=== PATIENT | female | born 1940 | race Caucasian/White ===

== ENCOUNTER 2017-04-07 09:39 | Inpatient (IN) | payer OTHER ==
[2017-04-07] MEDS ORDERED: SODIUM CHLORIDE 1,000 ML IV STA (10:28)
[2017-04-07] MEDS ORDERED: ONDANSETRON 4 MG/2 ML VIAL IVPB ONE (10:28)
[2017-04-07] MEDS ORDERED: FAMOTIDINE 20 MG/50 ML IVPB 50 ML IVPB ONE ×2 (10:28→11:31)
[2017-04-07] MEDS ORDERED: ACETAMINOPHEN 325 MG TABLET (FP) PO ONE (10:28)
[2017-04-07 11:11] LABS: BASOPHIL 0.9 % (0-2.0); EOSINOPHIL 1.5 % (0-4.5); MCH 29.9 pg (25.7-33.7); MCHC 35.4 g/dl (32.0-36.0); MEAN CELL VOLUME 84.7 fl (80-96); NEUTROPHILS 67.9 % (42.8-82.8); PLATELET COUNT 248 K/MM3 (134-434); RDW 12.8 % (11.6-15.6); WHITE BLOOD COUNT 5.4 K/mm3 (4.0-10.0)
[2017-04-07 11:21] LABS: ANION GAP 12 (8-16); CALCIUM 9.5 mg/dL (8.5-10.1); CO2 30 mmol/L (21-32); GLUCOSE,RANDOM 114 mg/dL (74-106); MAGNESIUM 2.3 mg/dL (1.8-2.4)
[2017-04-07 11:24] LABS: BILIRUBIN,TOTAL 0.8 mg/dL (0.2-1.0); CREATININE 0.7 mg/dL (0.55-1.02); SGOT/AST 33 U/L (15-37); SGPT/ALT 23 U/L (12-78); TOT PROT 7.2 g/dl (6.4-8.2)
[2017-04-07 11:27] LABS: ALK PHOS 74 U/L (45-117); CPK 241 IU/L (26-192); TROPONIN I 0.02 ng/ml (0.00-0.05)
[2017-04-07] MEDS ORDERED: ONDANSETRON 4 MG/2 ML VIAL ONE (11:31)
[2017-04-07] MEDS ORDERED: ACETAMINOPHEN 325 MG TABLET (FP) ONE (11:31)
[2017-04-07] MEDS ORDERED: POTASSIUM CHLORIDE TABS 20 MEQ TABLET.ER (FP) PO ONE ×3 (11:41→21:50)
--- NOTE | 2017-04-07 11:41 | PDOC ---
History of Present Illness - General History Source: Patient Exam Limitations: No Limitations - History of Present Illness Initial Comments: 04/07/17 13:34 The patient is a 76 year old female with past medical history of hypertension who presents with three days of, nausea, vomiting, lightheadedness and abdominal pain. The patient locates the pain to her epigastrium and states that she is unable to retain any food or drink, having a decreased appetite and vomiting up all that she has eaten. She reports also being constipated for the past few days as well. The patient states she was being treated for a kidney infection in which she just finished a course of ciprofloxacin. Since then she denies any urinary symptoms. She denies any fever, chills, cough, shortness of breath, or chest pain. The patient denies any recent travel or sick contacts. PCP: Alexander Velazquez <Meryl Richmond - Last Filed: 04/07/17 13:34> - General History Source: Patient Exam Limitations: No Limitations <Gideon Ko - Last Filed: 04/07/17 14:56> - General Chief Complaint: Pain Stated Complaint: ABD PAIN, HEAD PAIN Time Seen by Provider: 04/07/17 10:17 Past History <Meryl Richmond - Last Filed: 04/07/17 13:34> - Past Medical History GI Disorders: Yes (ACID REFLUX) HTN: Yes - Surgical History Abdominal Surgery: Yes Cholecystectomy: Yes - Psycho/Social/Smoking Cessation Hx Suicidal Ideation: No Smoking History: Never smoked Hx Alcohol Use: No Drug/Substance Use Hx: No Substance Use Type: None <Gideon Ko - Last Filed: 04/07/17 14:56> - Past Medical History Allergies/Adverse Reactions: Allergies Allergy/AdvReac Type Severity Reaction Status Date / Time No Known Allergies Allergy Verified 04/07/17 09:47 Home Medications: Ambulatory Orders Atenolol/Chlorthalidone [Atenolol-Chlorthalidone 50-25] 1 each PO DAILY Review of Systems - Review of Systems Able to Perform ROS?: Yes Comments:: 04/07/17 13:35 GENERAL/CONSTITUTIONAL: No fever or chills. No weakness. HEAD, EYES, EARS, NOSE AND THROAT: No change in vision. No ear pain or discharge. No sore throat. CARDIOVASCULAR: No chest pain or shortness of breath. RESPIRATORY: No cough, wheezing, or hemoptysis. GASTROINTESTINAL: Present: nausea, vomiting, abdominal pain No diarrhea or constipation. GENITOURINARY: No dysuria, frequency, or change in urination. MUSCULOSKELETAL: No joint or muscle swelling or pain. No neck or back pain. SKIN: No rash NEUROLOGIC: Present: lightheadedness No headache, vertigo, loss of consciousness, or change in strength/sensation. ENDOCRINE: No increased thirst. No abnormal weight change. HEMATOLOGIC/LYMPHATIC: No anemia, easy bleeding, or history of blood clots. ALLERGIC/IMMUNOLOGIC: No hives or skin allergy. All Other Systems: Reviewed and Negative <Meryl Richmond - Last Filed: 04/07/17 13:34> *Physical Exam - Vital Signs Last Vital Signs Temp Pulse Resp BP Pulse Ox 97.5 F L 69 20 128/66 98 04/07/17 09:44 04/07/17 09:44 04/07/17 09:44 04/07/17 09:44 04/07/17 09:44 - Physical Exam Comments: 04/07/17 13:36 GENERAL: Awake, alert, and fully oriented, in no acute distress HEAD: No signs of trauma EYES: PERRLA, EOMI, sclera anicteric, conjunctiva clear ENT: Auricles normal inspection, hearing grossly normal, nares patent, oropharynx clear without exudates. Moist mucosa NECK: Normal ROM, supple, no lymphadenopathy, JVD, or masses LUNGS: Breath sounds equal, clear to auscultation bilaterally. No wheezes, and no crackles HEART: Regular rate and rhythm, normal S1 and S2, no murmurs, rubs or gallops ABDOMEN: Soft, nontender, normoactive bowel sounds. No guarding, no rebound. No masses EXTREMITIES: Normal range of motion, no edema. No clubbing or cyanosis. No cords, erythema, or tenderness NEUROLOGICAL: Cranial nerves II through XII grossly intact. Normal speech, normal gait SKIN: Warm, Dry, normal turgor, no rashes or lesions noted. <Meryl Richmond - Last Filed: 04/07/17 13:34> - Vital Signs Last Vital Signs Temp Pulse Resp BP Pulse Ox 97.5 F L 69 20 128/66 98 04/07/17 09:44 04/07/17 09:44 04/07/17 09:44 04/07/17 09:44 04/07/17 09:44 <Gideon Ko - Last Filed: 04/07/17 14:56> Heart Score/ECG Review #1 ECG reviewed & interpreted by me at: 15:00 04/07/17 14:55 NSR 55, T wave flat III, no std/jason, QTC 474 msec <Gideon Ko - Last Filed: 04/07/17 14:56> ED Treatment Course - LABORATORY CBC & Chemistry Diagram: 04/07/17 10:30 04/07/17 10:30 - ADDITIONAL ORDERS Additional order review: Laboratory Results 04/07/17 04/07/17 11:30 10:30 Sodium 124 L* Potassium 2.9 L* Chloride 82 L Carbon Dioxide 30 Anion Gap 12 BUN 9 Creatinine 0.7 Creat Clearance w eGFR > 60 Random Glucose 114 H Calcium 9.5 Magnesium 2.3 Total Bilirubin 0.8 AST 33 ALT 23 Alkaline Phosphatase 74 Creatine Kinase 241 H Creatine Kinase Index 1.6 CK-MB (CK-2) 4.089 H Troponin I 0.02 Total Protein 7.2 Albumin 4.0 Lipase 133 Urine Color Ltyellow Urine Appearance Clear Urine pH 7.0 Urine Protein Negative Urine Glucose (UA) Negative Urine Ketones Trace H Urine Blood 1+ H Urine Nitrite Negative Urine Bilirubin Negative Urine Urobilinogen Negative Ur Leukocyte Esterase 2+ H Urine RBC 2 Urine WBC 12 Ur Epithelial Cells Rare 04/07/17 10:30 RBC 4.49 MCV 84.7 MCHC 35.4 RDW 12.8 MPV 8.0 Neutrophils % 67.9 Lymphocytes % 17.5 Monocytes % 12.2 H Eosinophils % 1.5 Basophils % 0.9 - RADIOLOGY Radiograph Interpretation: 04/07/17 13:[address] reported by Dr[address] Phillips reports some retained stools, no fecal impaction or free air. - Medications Given in the ED: ED Medications Discontinued Medications Generic Name Dose Route Start Last Admin Trade Name Freq PRN Reason Stop Dose Admin Acetaminophen 650 mg 04/07/17 10:28 04/07/17 11:29 Tylenol - PO 04/07/17 10:29 650 mg ONCE ONE Administration Famotidine/Sodium Chloride 50 mls @ 100 mls/hr 04/07/17 10:28 04/07/17 11:29 Pepcid 20 Mg Premixed Ivpb - IVPB 04/07/17 10:57 100 mls/hr ONCE ONE Administration Sodium Chloride 1,000 mls @ 1,000 mls/hr 04/07/17 10:28 04/07/17 11:29 Normal Saline - IV 04/07/17 11:27 1,000 mls/hr ASDIR STA Administration Pantoprazole Sodium 40 mg/ 100 mls @ 200 mls/hr 04/07/17 12:56 04/07/17 12:58 Sodium Chloride IVPB 04/07/17 13:25 200 mls/hr ONCE ONE Administration Ondansetron HCl 4 mg 04/07/17 10:28 04/07/17 11:30 Zofran Injection IVPB 04/07/17 10:29 4 mg ONCE ONE Administration Potassium Chloride 60 meq 04/07/17 11:41 04/07/17 12:35 K-Dur - PO 04/07/17 11:42 60 meq ONCE ONE Administration <Meryl Richmond - Last Filed: 04/07/17 13:34> - LABORATORY CBC & Chemistry Diagram: 04/07/17 10:30 04/07/17 13:00 - RADIOLOGY Radiology Studies Ordered: Category Date Time Status ABDOMEN FLAT & UPRIGHT [RAD] Stat Radiology 04/07/17 10:33 Ordered <Gideon Ko - Last Filed: 04/07/17 14:56> Medical Decision Making - Medical Decision Making 04/07/17 11:10 A portion of this note was documented by scribe services under my direction. I have reviewed the details of the note, within reason, and agree with the documentation with the following case summary and management plan written by me. Patient treated in the ED. Nursing notes are reviewed and incorporated into the medical decision-making. Vital signs reviewed. Peripheral IV access obtained by the nurse, laboratory studies are drawn and sent, reviewed and interpreted by myself. Vital Signs Temp Pulse Resp BP Pulse Ox 97.5 F L 69 20 128/66 98 04/07/17 09:44 04/07/17 09:44 04/07/17 09:44 04/07/17 09:44 04/07/17 09:44 76 year old female with past medical history of hypertension presents with abdominal pain, nausea, vomiting. The patient reports for last 2 days of having constant epigastric abdominal pain with several episodes of vomiting but denies fevers or chills. Denies sick contacts or recent travels or bad foods. Denies dysuria. Reports that she is constipated for last 2 days. States she has a history of a section. Patient was recently treated for pyelonephritis and finished her dose of 10 days of ciprofloxacin one week ago and reports that her dysuria improved drastically. We'll need to obtain blood work, urinalysis and treat for potential gastritis or GERD. Abdominal x-ray for the constipation and reassess. 04/07/17 12:49 CBC, BMP 04/07/17 10:30 04/07/17 10:30 CMP Sodium 124 mmol/L (136-145) L* 04/07/17 10:30 Potassium 2.9 mmol/L (3.5-5.1) L* 04/07/17 10:30 Chloride 82 mmol/L (98-107) L 04/07/17 10:30 Carbon Dioxide 30 mmol/L (21-32) 04/07/17 10:30 Anion Gap 12 (8-16) 04/07/17 10:30 BUN 9 mg/dL (7-18) 04/07/17 10:30 Creatinine 0.7 mg/dL (0.55-1.02) 04/07/17 10:30 Creat Clearance w eGFR > 60 (>60) 04/07/17 10:30 Random Glucose 114 mg/dL (74-106) H 04/07/17 10:30 Calcium 9.5 mg/dL (8.5-10.1) 04/07/17 10:30 Magnesium 2.3 mg/dL (1.8-2.4) 04/07/17 10:30 Total Bilirubin 0.8 mg/dL (0.2-1.0) 04/07/17 10:30 AST 33 U/L (15-37) 04/07/17 10:30 ALT 23 U/L (12-78) 04/07/17 10:30 Alkaline Phosphatase 74 U/L (45-117) 04/07/17 10:30 Creatine Kinase 241 IU/L (26-192) H 04/07/17 10:30 Creatine Kinase Index 1.6 % (0.0-5.0) 04/07/17 10:30 CK-MB (CK-2) 4.089 ng/mL (0.5-3.6) H 04/07/17 10:30 Troponin I 0.02 ng/ml (0.00-0.05) 04/07/17 10:30 Total Protein 7.2 g/dl (6.4-8.2) 04/07/17 10:30 Albumin 4.0 g/dl (3.4-5.0) 04/07/17 10:30 Lipase 133 U/L (73-393) 04/07/17 10:30 Urine Test Results Urine Color Ltyellow 04/07/17 11:30 Urine Appearance Clear 04/07/17 11:30 Urine pH 7.0 (5.0-8.0) 04/07/17 11:30 Urine Protein Negative (NEGATIVE) 04/07/17 11:30 Urine Glucose (UA) Negative (NEGATIVE) 04/07/17 11:30 Urine Ketones Trace (NEGATIVE) H 04/07/17 11:30 Urine Blood 1+ (NEGATIVE) H 04/07/17 11:30 Urine Nitrite Negative (NEGATIVE) 04/07/17 11:30 Urine Bilirubin Negative (NEGATIVE) 04/07/17 11:30 Ur Leukocyte Esterase 2+ (NEGATIVE) H 04/07/17 11:30 Urine RBC 2 /hpf (0-3) 04/07/17 11:30 Urine WBC 12 /hpf (3-5) 04/07/17 11:30 Ur Epithelial Cells Rare /hpf (FEW) 04/07/17 11:30 Blood work done shows hyponatremia 124 potassium 2.9. It may be secondary to medication related from her blood pressure medications and or combination of decreased appetite, nausea vomiting hypovolemia. Patient had a ready received 1 L of normal saline and oral potassium repletion. Repeat chemistries are pending. At this time, patient reports some relief with GERD medications. Ultimately, the patient should be admitted to the hospital for further management and evaluation. Case is discussed with [facility] hospitalist Dr. Bobo who accepts the patient to the hospital for further evaluation. Case discussed in detail with admitting physician including history, physical exam and ancillary studies. Admitting physician has assumed care for the patient, will follow all pending diagnostics and will complete the evaluation and treatment. <Gideon Ko - Last Filed: 04/07/17 14:56> *DC/Admit/Observation/Transfer - Attestations Scribe Attestion: 04/07/17 13:39 Documentation prepared by Meryl Richmond, acting as medical aide for Gideon Ko MD. <Meryl Richmond - Last Filed: 04/07/17 13:34> - Discharge Dispostion Admit: Yes <Gideon Ko - Last Filed: 04/07/17 14:56> Diagnosis at time of Disposition: Hyponatremia, Hypokalemia
[2017-04-07 11:48] LABS: URINE APPEARANCE CLEAR; URINE BILIRUBIN NEGATIVE (NEGATIVE); URINE BLOOD 1+ (NEGATIVE); URINE COLOR LTYELLOW; URINE GLUCOSE (UA) NEGATIVE (NEGATIVE); URINE KETONE TRACE (NEGATIVE); URINE NITRITE NEGATIVE (NEGATIVE); URINE PROTEIN NEGATIVE (NEGATIVE); URINE UROBILINOGEN NEGATIVE mg/dL (0.2-1.0)
[2017-04-07 12:02] LABS: URINE LEUK ESTERASE 2+ (NEGATIVE)
[2017-04-07 12:04] LABS: URINE RBC 2 /hpf (0-3); URINE WBC 12 /hpf (3-5)
[2017-04-07] MEDS ORDERED: POTASSIUM CHLORIDE ORAL LIQUID 20 MEQ/15 ML ONE ×2 (12:37→14:18)
--- NOTE | 2017-04-07 12:51 | HP ---
CHIEF COMPLAINT: Abdominal pain, nausea and vomiting, intermittent dizziness x 2 days PCP: PCP: Alexander Velazquez HISTORY OF PRESENT ILLNESS: Patient is 76 year old female with past medical history of hypertension (on Atenolol/Chlorthalidone). She presents with abdominal pain, nausea, vomiting. The patient reports for last 2 days of having constant epigastric abdominal pain with several episodes of vomiting. She denies fevers, chill, chest pain. States she is constipated x 2 days. She denies any recent travel. Patient was recently treated with Cipro for pyelonephritis and finished her dose of 10 days of ciprofloxacin approximately one week ago. ER course was notable for: (1) NA 124, given 1 liter of IVF (2) Potassium 2.9, repleted with Kdur 60mg x 1 (3) Glucose 114 (4) Trop negative x 1 (5) EKG sinus bradycardia, non specific t wave abnormality Recent Travel: denies PAST MEDICAL HISTORY: hypertension, pylenophritis PAST SURGICAL HISTORY: Social History: Smoking:denies Alcohol:denies Drugs: denies Family History: Allergies No Known Allergies Allergy (Verified 04/07/17 09:47) HOME MEDICATIONS: Home Medications Medication Instructions Recorded Atenolol/Chlorthalidone 1 each PO DAILY 07/01/16 [Atenolol-Chlorthalidone 50-25] REVIEW OF SYSTEMS CONSTITUTIONAL: Absent: fever, chills, diaphoresis, generalized weakness, malaise, loss of appetite, weight change HEENT: Absent: rhinorrhea, nasal congestion, throat pain, throat swelling, difficulty swallowing, mouth swelling, ear pain, eye pain, visual changes CARDIOVASCULAR: Absent: chest pain, syncope, palpitations, irregular heart rate, lightheadedness , peripheral edema RESPIRATORY: Absent: cough, shortness of breath, dyspnea with exertion, orthopnea, wheezing, stridor, hemoptysis GASTROINTESTINAL: Absent: abdominal pain, abdominal distension, nausea, vomiting, diarrhea, constipation, melena, hematochezia GENITOURINARY: Absent: dysuria, frequency, urgency, hesitancy, hematuria, flank pain, genital pain MUSCULOSKELETAL: Absent: myalgia, arthralgia, joint swelling, back pain, neck pain SKIN: Absent: rash, itching, pallor HEMATOLOGIC/IMMUNOLOGIC: Absent: easy bleeding, easy bruising, lymphadenopathy, frequent infections ENDOCRINE: Absent: unexplained weight gain, unexplained weight loss, heat intolerance, cold intolerance NEUROLOGIC: Absent: headache, focal weakness or paresthesias, unsteady gait, seizure, mental status changes, bladder or bowel incontinence PSYCHIATRIC: Absent: anxiety, depression, suicidal or homicidal ideation, hallucinations. PHYSICAL EXAMINATION Vital Signs - 24 hr 04/07/17 09:44 Temperature 97.5 F L Pulse Rate 69 Respiratory 20 Rate Blood Pressure 128/66 O2 Sat by Pulse 98 Oximetry (%) GENERAL: Awake, alert, and fully oriented, in no acute distress. HEAD: Normal with no signs of trauma. EYES: Pupils equal, round and reactive to light, extraocular movements intact, sclera anicteric, conjunctiva clear. No lid lag. EARS, NOSE, THROAT: Ears normal, nares patent, oropharynx clear without exudates. Moist mucous membranes. NECK: Normal range of motion, supple without lymphadenopathy, JVD, or masses. LUNGS: No accessory muscle use. ABDOMEN: Soft, nontender, not distended, normoactive bowel sounds, no guarding, no rebound, no masses. No hepatomegaly or splenomegaly. MUSCULOSKELETAL: Normal range of motion at all joints. No bony deformities or tenderness. No CVA tenderness. UPPER EXTREMITIES: 2+ pulses, warm, well-perfused. No cyanosis. No clubbing. No peripheral edema. LOWER EXTREMITIES: No peripheral edema. NEUROLOGICAL: Normal speech. Normal gait. PSYCHIATRIC: Appropriate mood and affect. SKIN: Warm, dry, normal turgor, no rashes or lesions noted, normal capillary refill. Laboratory Results - last 24 hr 04/07/17 04/07/17 04/07/17 10:30 10:30 11:30 WBC 5.4 RBC 4.49 Hgb 13.5 Hct 38.1 MCV 84.7 MCH 29.9 MCHC 35.4 RDW 12.8 Plt Count 248 MPV 8.0 Neutrophils % 67.9 Lymphocytes % 17.5 Monocytes % 12.2 H Eosinophils % 1.5 Basophils % 0.9 Sodium 124 L* Potassium 2.9 L* Chloride 82 L Carbon Dioxide 30 Anion Gap 12 BUN 9 Creatinine 0.7 Creat Clearance w eGFR > 60 Random Glucose 114 H Calcium 9.5 Magnesium 2.3 Total Bilirubin 0.8 AST 33 ALT 23 Alkaline Phosphatase 74 Creatine Kinase 241 H Creatine Kinase Index 1.6 CK-MB (CK-2) 4.089 H Troponin I 0.02 Total Protein 7.2 Albumin 4.0 Lipase 133 Urine Color Ltyellow Urine Appearance Clear Urine pH 7.0 Urine Protein Negative Urine Glucose (UA) Negative Urine Ketones Trace H Urine Blood 1+ H Urine Nitrite Negative Urine Bilirubin Negative Urine Urobilinogen Negative Ur Leukocyte Esterase 2+ H Urine RBC 2 Urine WBC 12 Ur Epithelial Cells Rare ASSESSMENT/PLAN: Patient is 76 year old female with past medical history of hypertension (on Atenolol/Chlorthalidone). She presents with abdominal pain, nausea, vomiting. The patient reports for last 2 days of having constant epigastric abdominal pain with several episodes of vomiting. She denies fevers, chill, chest pain. States she is constipated x 2 days. She denies any recent travel. Patient was recently treated with Cipro for pyelonephritis and finished her dose of 10 days of ciprofloxacin approximately one week ago. Electrolyte Imbalance: Severe Hyponatremia - acute A/P: Critical sodium @124, given 1 liter fluids in ER Will correct sodium slowly and check cmp q4 + vomiting episodes @ home, abdominal xray shows retained stool without fecal impaction Repeat CMP now NS @ 50cc/hr Renal consult for electrolyte imbalance No seizure, monitor neurological staus Hypokalemia - acute A/P: Critical potassium @2.9, given KDur 60meq x 1 in ER, repeat shows K. 3.4, given 20meq PO x 1 Likely secondary to acute vomiting episodes Repeat CMP q4 Renal consult for electrolyte imbalance Renal: Pyelonephritis A/P: Recently treated with Cipro 500mg x 10 days as an outpatient UA with +2 leuk est, afebrile Urine cultures pending Monitor off antibiotics Cardiology: Hypertension: A/P: On Atenolol/Chlorthalidone home dose, hold secondary to hyponatremia Will give Atenelol 50mg and monitor GI: Abdominal Pain A/P: Clear liquids diet Monitor for improvement Pepcid daily, given Pepcid in Ed with improvement F.E.N. Fluids: NS @50cc/hr Electrolytes: CMP q4, hypokalemia and hypnatremia repleted Nutrition: Clears Prophylaxis: GI: Pepcid DVT: ambulation, Heparin if stay exceeds 48 hours Disposition: Full code.
[2017-04-07] MEDS ORDERED: PANTOPRAZOLE SODIUM 40 MG in SODIUM CHLORIDE 100 ML IVPB ONE (12:56)
[2017-04-07] MEDS ORDERED: PANTOPRAZOLE SODIUM 100 ML IVPB ONE ×2 (13:23→14:04)
[2017-04-07 14:04] LABS: ANION GAP 12 (8-16); CALCIUM 8.7 mg/dL (8.5-10.1); CO2 29 mmol/L (21-32); CREATININE 0.7 mg/dL (0.55-1.02); GLUCOSE,RANDOM 113 mg/dL (74-106); SGOT/AST 32 U/L (15-37); SGPT/ALT 23 U/L (12-78)
[2017-04-07 14:08] LABS: ALK PHOS 72 U/L (45-117); BILIRUBIN,TOTAL 0.8 mg/dL (0.2-1.0)
[2017-04-07] MEDS ORDERED: POTASSIUM CHLORIDE ORAL LIQUID 20 MEQ/15 ML PO ONE (14:11)
[2017-04-07 14:30] VITALS: BMI 31.8
[2017-04-07] MEDS ORDERED: SODIUM CHLORIDE 1,000 ML IV SCH ×2 (14:30)
--- NOTE | 2017-04-07 16:14 | EKG ---
Test Reason : Blood Pressure : / mmHG Vent. Rate : 056 BPM Atrial Rate : 056 BPM P-R Int : 162 ms QRS Dur : 080 ms QT Int : 500 ms P-R-T Axes : 000 212 121 degrees QTc Int : 482 ms SINUS BRADYCARDIA LIMB LEAD REVERSAL NONSPECIFIC T WAVE ABNORMALITY NO PREVIOUS ECGS AVAILABLE REPEAT TRACING. Confirmed by MU RAMACHANDRAN MD ([id number] on 04/07/2017 4:14:13 PM Referred By: Confirmed By:MU RAMACHANDRAN MD
[2017-04-07 16:29] LABS: ALBUMIN 3.5 g/dl (3.4-5.0); ANION GAP 10 (8-16); BILIRUBIN,TOTAL 0.7 mg/dL (0.2-1.0); CALCIUM 8.3 mg/dL (8.5-10.1); CO2 27 mmol/L (21-32); CREATININE 0.6 mg/dL (0.55-1.02); GLUCOSE,RANDOM 99 mg/dL (74-106); SGOT/AST 29 U/L (15-37); SGPT/ALT 20 U/L (12-78); TOT PROT 6.2 g/dl (6.4-8.2)
[2017-04-07 16:30] LABS: ALK PHOS 63 U/L (45-117)
[2017-04-07 17:26] LABS: ALBUMIN 3.6 g/dl (3.4-5.0); ANION GAP 10 (8-16); CALCIUM 8.6 mg/dL (8.5-10.1); CO2 28 mmol/L (21-32); CREATININE 0.6 mg/dL (0.55-1.02); GLUCOSE,RANDOM 91 mg/dL (74-106); SGOT/AST 31 U/L (15-37); SGPT/ALT 21 U/L (12-78)
[2017-04-07 17:27] LABS: ALK PHOS 66 U/L (45-117); TOT PROT 6.5 g/dl (6.4-8.2)
--- NOTE | 2017-04-07 17:41 | CONSULT ---
Consult Consult Specialty:: Nephrology Reason for Consultation:: hyponatremia - History of Present Illness Chief Complaint: vomiting History of Present Illness: Pt is a 76 year old female with pmhx of arthritis and HTN who presents to the ER complaining of nausea and vomiting. She says she has been vomiting for the last few days and has not been able to hold food down. Pt also complains of constipation. She was also recently treated for a UTI. She found herself to be dizzy after vomiting and was brought to the ER. She was found to be hyponatremic on arrival and I was called to evaluate her. Her sodium did however improve after one liter of saline. She denies history of hyponatremia. She denies excess water or fluid intake. She is on chlorthalidone. - History Source History Provided By: Patient, Family Member, Medical Record - Past Medical History Cardio/Vascular: Yes: HTN Musculoskeletal: Yes: Osteoarthritis - Alcohol/Substance Use Hx Alcohol Use: No - Smoking History Smoking history: Never smoked Home Medications - Allergies Allergies/Adverse Reactions: Allergies Allergy/AdvReac Type Severity Reaction Status Date / Time No Known Allergies Allergy Verified 04/07/17 09:47 - Home Medications Home Medications: Ambulatory Orders Atenolol/Chlorthalidone [Atenolol-Chlorthalidone 50-25] 1 each PO DAILY Family Disease History - Family Disease History Family History: Denies Review of Systems - Review of Systems Constitutional: reports: Malaise Eyes: reports: No Symptoms HENT: reports: No Symptoms Neck: reports: No Symptoms Cardiovascular: reports: No Symptoms Respiratory: reports: No Symptoms Gastrointestinal: reports: Constipation, Vomiting Genitourinary: reports: No Symptoms Integumentary: reports: No Symptoms Neurological: reports: No Symptoms Psychiatric: reports: No Symptoms Physical Exam Vital Signs: Vital Signs Temperature 97.6 F 04/07/17 13:36 Pulse Rate 68 04/07/17 13:36 Respiratory Rate 16 04/07/17 13:36 Blood Pressure 124/76 04/07/17 13:36 O2 Sat by Pulse Oximetry (%) 97 04/07/17 14:21 Constitutional: Yes: Calm Eyes: Yes: WNL Neck: Yes: WNL Cardiovascular: Yes: S1, S2 Respiratory: Yes: CTA Bilaterally Gastrointestinal: Yes: Soft Renal/: Yes: WNL Musculoskeletal: Yes: WNL Extremities: Yes: WNL Edema: No Neurological: Yes: Oriented Psychiatric: Yes: Oriented Labs: CBC, BMP 04/07/17 16:30 Laboratory Tests 04/07/17 04/07/17 04/07/17 10:30 10:30 11:30 WBC 5.4 Hgb 13.5 Plt Count 248 Sodium 124 L* Potassium 2.9 L* Chloride 82 L Carbon Dioxide 30 Anion Gap 12 BUN 9 Creatinine 0.7 Urine Color Ltyellow Urine Appearance Clear Urine pH 7.0 Ur Specific [place] 1.015 Urine Protein Negative Urine Glucose (UA) Negative Urine Ketones Trace H Urine Blood 1+ H Urine Nitrite Negative Urine Bilirubin Negative Urine Urobilinogen Negative 04/07/17 04/07/17 04/07/17 13:00 15:40 16:30 WBC Hgb Plt Count Sodium 128 L 129 L 129 L Potassium 3.4 L 4.2 D 4.2 Chloride Carbon Dioxide Anion Gap BUN Creatinine 0.7 0.6 0.6 Urine Color Urine Appearance Urine pH Ur Specific [place] Urine Protein Urine Glucose (UA) Urine Ketones Urine Blood Urine Nitrite Urine Bilirubin Urine Urobilinogen Imaging - Results X-ray: Report Reviewed Problem List - Problems (1) Hyponatremia Code(s): E87.1 - HYPO-OSMOLALITY AND HYPONATREMIA (2) Hypertension Code(s): I10 - ESSENTIAL (PRIMARY) HYPERTENSION (3) Hypokalemia Code(s): E87.6 - HYPOKALEMIA Assessment/Plan Current Medications Generic Name Dose Route Start Last Admin Trade Name Allison PRN Reason Stop Dose Admin Sodium Chloride 1,000 mls @ 50 mls/hr 04/07/17 14:30 04/07/17 14:32 Normal Saline - IV 50 mls/hr ASDIR DERICK Administration Pantoprazole Sodium 40 mg 04/08/17 10:00 Protonix - PO DAILY DERICK Impression 1. hyponatremia 2. hypokalemia 3. HTN 4. arthritis 5. constipation 6. vomiting Plan - sodium has improved - start d5w as it has risen too quickly - stop chlorthalidone - hyponatremia likely secondary to vomiting and chlorthalidone - replace potassium - will need serial bmp - monitor blood pressure, can give atenolol if elevated as that is what is listed on her home med list - will check osms, tsh and cortisol - will need laxative for contipation Dr Montilla
[2017-04-07] MEDS ORDERED: DEXTROSE 5%-WATER - 1,000 ML IV SCH (17:45)
[2017-04-07 20:11] LABS: OSMOLALITY,SERUM 266 mosm/kg (278-305)
[2017-04-07] MEDS ORDERED: MAGNESIUM HYDROX 2400MG/30ML ORAL SUSPENSION 30 ML CUP PO ONE (21:33)
[2017-04-07 21:46] LABS: ANION GAP 6 (8-16); CALCIUM 8.4 mg/dL (8.5-10.1); CO2 28 mmol/L (21-32); CREATININE 0.7 mg/dL (0.55-1.02); GLUCOSE,RANDOM 112 mg/dL (74-106)
--- NOTE | 2017-04-07 21:50 | PN ---
Progress Note (short form) - Note Progress Note: Laboratory Tests 04/07/17 21:15 Sodium 128 L Potassium 3.5 Chloride 94 L Carbon Dioxide 28 Anion Gap 6 L BUN 7 Creatinine 0.7 Sodium level improving. I had switched her to d5w in order to slow the correction rate. Can switch fluids to 1/2 ns. Continue to follow bmp. Problem List - Problems (1) Hyponatremia Code(s): E87.1 - HYPO-OSMOLALITY AND HYPONATREMIA (2) Hypertension Code(s): I10 - ESSENTIAL (PRIMARY) HYPERTENSION (3) Hypokalemia Code(s): E87.6 - HYPOKALEMIA
[2017-04-07] MEDS ORDERED: SODIUM CHLORIDE 0.45% 1,000 ML IV SCH (22:00)
[2017-04-07] MEDS: SODIUM CHLORIDE 0.45% 1,000 ML IV SCH (22:08)
[2017-04-08 08:28] LABS: MCH 30.2 pg (25.7-33.7); MEAN CELL VOLUME 86.3 fl (80-96); MEAN PLT VOLUME 7.9 fl (7.5-11.1); PLATELET COUNT 250 K/MM3 (134-434); RDW 13.2 % (11.6-15.6); WHITE BLOOD COUNT 3.3 K/mm3 (4.0-10.0)
[2017-04-08] MEDS ORDERED: POLYETHYLENE GLYCOL 3350 119 GM BTL PO ONE (09:00)
[2017-04-08 09:06] LABS: ALBUMIN 3.5 g/dl (3.4-5.0); ANION GAP 5 (8-16); CALCIUM 8.8 mg/dL (8.5-10.1); CO2 28 mmol/L (21-32); GLUCOSE,RANDOM 142 mg/dL (74-106); MAGNESIUM 2.2 mg/dL (1.8-2.4); SGOT/AST 31 U/L (15-37); SGPT/ALT 23 U/L (12-78)
[2017-04-08 09:17] LABS: ALK PHOS 65 U/L (45-117); BILIRUBIN,TOTAL 0.6 mg/dL (0.2-1.0); CREATININE 0.7 mg/dL (0.55-1.02); THYROID STIMULATING HORMONE 1.59 uIU/ml (0.358-3.74); TOT PROT 6.6 g/dl (6.4-8.2)
[2017-04-08] MEDS ORDERED: ATENOLOL 25 MG TABLET (FP) PO SCH (10:00)
[2017-04-08] MEDS: PANTOPRAZOLE 40 MG TABLET (FP) PO SCH (10:17)
--- NOTE | 2017-04-08 12:14 | EKG ---
Test Reason : Blood Pressure : / mmHG Vent. Rate : 051 BPM Atrial Rate : 051 BPM P-R Int : 152 ms QRS Dur : 072 ms QT Int : 486 ms P-R-T Axes : 033 -07 055 degrees QTc Int : 447 ms SINUS BRADYCARDIA NONSPECIFIC T WAVE ABNORMALITY ABNORMAL ECG WHEN COMPARED WITH ECG OF 07-APR-2017 14:53, NO SIGNIFICANT CHANGE WAS FOUND Confirmed by OLEG KHAN MD ([id number]) on 04/08/2017 12:14:33 PM Referred By: CARLOS ALBERTO RUTLEDGE Confirmed By:OLEG KHAN MD
[2017-04-08] MEDS ORDERED: CEFTRIAXONE 1 GM in DEXTROSE 5%-WATER - 50 ML IVPB SCH (12:15)
--- NOTE | 2017-04-08 13:18 | PN ---
Physical Exam: SUBJECTIVE: Patient seen and examined. She states she feels well and denies further abdominal pain. Denies chest pain or shortness of breath. OBJECTIVE: Anterior right thigh rash - hydrocortisone cream BID Hyponatremia improving - now on NS @ 50cc/hr UC with + staph coag neg bacteria >100,000 colonies - awaiting sensitivities Will likely need antibiotics after sensitivities identified. She remains afebrile and WBC stable. Vital Signs Period Temp Pulse Resp BP Sys/Alexis Pulse Ox Last 24 Hr 97.6 F-98.6 F 56-68 16-18 95-131/53-76 96-98 GENERAL: Awake, alert, and fully oriented, in no acute distress. HEAD: Normal with no signs of trauma. EYES: Pupils equal, round and reactive to light, extraocular movements intact, sclera anicteric, conjunctiva clear. No lid lag. EARS, NOSE, THROAT: Ears normal, nares patent, oropharynx clear without exudates. Moist mucous membranes. NECK: Normal range of motion, supple without lymphadenopathy, JVD, or masses. LUNGS: No accessory muscle use. ABDOMEN: Soft, nontender, not distended, normoactive bowel sounds, no guarding, no rebound, no masses. No hepatomegaly or splenomegaly. MUSCULOSKELETAL: Normal range of motion at all joints. No bony deformities or tenderness. No CVA tenderness. UPPER EXTREMITIES: 2+ pulses, warm, well-perfused. No cyanosis. No clubbing. No peripheral edema. LOWER EXTREMITIES: No peripheral edema. NEUROLOGICAL: Normal speech. Normal gait. PSYCHIATRIC: Appropriate mood and affect. SKIN: Right thigh anterior rash that patient reports she had x 4 days when at home. Hyrdocortisone cream ordered. Laboratory Results - last 24 hr 04/07/17 04/07/17 04/07/17 15:40 15:40 16:30 WBC RBC Hgb Hct MCV MCH MCHC RDW Plt Count MPV Sodium 129 L 129 L Potassium 4.2 D 4.2 Chloride 92 L 91 L Carbon Dioxide 27 28 Anion Gap 10 10 BUN 8 8 Creatinine 0.6 0.6 Creat Clearance w eGFR > 60 > 60 Random Glucose 99 91 Hemoglobin A1c % Serum Osmolality 266 L Calcium 8.3 L 8.6 Magnesium Total Bilirubin 0.7 1.0 D AST 29 31 ALT 20 21 Alkaline Phosphatase 63 66 Troponin I 0.03 Total Protein 6.2 L 6.5 Albumin 3.5 3.6 TSH 04/07/17 04/07/17 04/08/17 21:15 23:15 08:15 WBC 3.3 L D RBC 4.25 Hgb 12.8 Hct 36.7 MCV 86.3 MCH 30.2 MCHC 35.0 RDW 13.2 Plt Count 250 MPV 7.9 Sodium 128 L Potassium 3.5 Chloride 94 L Carbon Dioxide 28 Anion Gap 6 L BUN 7 Creatinine 0.7 Creat Clearance w eGFR Random Glucose 112 H D Hemoglobin A1c % Serum Osmolality Calcium 8.4 L Magnesium Total Bilirubin AST ALT Alkaline Phosphatase Troponin I 0.02 Total Protein Albumin TSH 04/08/17 04/08/17 08:15 08:15 WBC RBC Hgb Hct MCV MCH MCHC RDW Plt Count MPV Sodium 129 L Potassium 4.5 D Chloride 96 L Carbon Dioxide 28 Anion Gap 5 L BUN 4 L D Creatinine 0.7 Creat Clearance w eGFR > 60 Random Glucose 142 H D Hemoglobin A1c % 5.3 Serum Osmolality Calcium 8.8 Magnesium 2.2 Total Bilirubin 0.6 D AST 31 ALT 23 Alkaline Phosphatase 65 Troponin I Total Protein 6.6 Albumin 3.5 TSH 1.59 Active Medications Generic Name Dose Route Start Last Admin Trade Name Freq PRN Reason Stop Dose Admin Atenolol 25 mg 04/08/17 10:00 04/08/17 10:17 Tenormin - PO 25 mg DAILY DERICK Administration Hydrocortisone 1 applic 04/08/17 13:16 Hytone 1% Cream - TP BID PRN right anterior thigh rash Sodium Chloride 1,000 mls @ 60 mls/hr 04/07/17 22:00 04/07/17 22:08 1/2 Normal Saline IV 04/08/17 21:50 60 mls/hr ASDIR DERICK Administration Pantoprazole Sodium 40 mg 04/08/17 10:00 04/08/17 10:17 Protonix - PO 40 mg DAILY DERICK Administration ASSESSMENT/PLAN: Patient is 76 year old female with past medical history of hypertension (on home dose of Atenolol/Chlorthalidone). She presents with abdominal pain, nausea , vomiting. The patient reports for last 2 days of having constant epigastric abdominal pain with several episodes of vomiting. She denies fevers, chill, chest pain. States she is constipated x 2 days. She denies any recent travel. Patient was recently treated with Cipro for pyelonephritis and finished her dose of 10 days of ciprofloxacin approximately one week ago. Imaging: Abdominal CT negative for obstruction, + retained stool Electrolyte Imbalance: Severe Hyponatremia - improving A/P: Critical sodium @124 on admission, now 129 Will continue to slowly correct sodium and check cmp in a.m. Now on NS @ 50cc/hr per renal No further vomiting episodes, or abdominal pain. hyponatremia likely secondary to chlorthalidone use and vomiting Chlorthalidone has been discontinued, with new order of Atenolol 25mg Renal following for electrolyte imbalance Continue to monitor neurological staus Hypokalemia - resolved A/P: Critical potassium @2.9 on admission, repleted with multiple doses of Kdur , K now stabilized Hypokalemia likely secondary to acute vomiting episodes on admission, now resolved Repeat CMP in a.m. Renal: Pyelonephritis A/P: Recently treated with Cipro 500mg x 10 days as an outpatient UA with +2 leuk est, afebrile Urine cultures shows staph coag neg >100,000 colonies, awaiting sensitivities. As per labor standards director, sensitivities to be reported tomorrow She is afebrile, asymptomatic and WBC is within normal limits Consider outpatient antibiotics once sensitivities resulted Cardiology: Hypertension: A/P: On Atenolol/Chlorthalidone home dose, this med has been d/cd and replaced with Atenolol 25mg Parameters to hold med if sbp <100 or if heart rate less than 60 GI: Abdominal Pain - resolved A/P: advanced diet to regular today Monitor for improvement F.E.N. Fluids: NS @50cc/hr Electrolytes: CMP in a.m Nutrition: Clears Prophylaxis: GI: Protonix DVT: ambulation, Heparin if stay exceeds 48 hours Disposition: Likely discharge tomorrow once cleared by Renal and UC sensitivities reported. Full Code. Visit type - Emergency Visit Emergency Visit: Yes ED Registration Date: 04/07/17 Care time: The patient presented to the Emergency Department on the above date and was hospitalized for further evaluation of their emergent condition. - New Patient This patient is new to me today: No - Critical Care Critical Care patient: No - Discharge Referral Referred to [facility] Med P.C.: No
--- NOTE | 2017-04-08 14:10 | PN ---
Physical Exam: SUBJECTIVE: Patient seen and examined. sitting comfortably in chair. Denies nausea, vomiting and dizziness. Sr. Na improving. OBJECTIVE: Vital Signs Period Temp Pulse Resp BP Sys/Alexis Pulse Ox Last 24 Hr 97.8 F-98.6 F 56-61 18-18 95-131/53-76 96-97 GENERAL: The patient is awake, alert, and fully oriented, in no acute distress. ENT: oropharynx clear without exudates, moist mucous membranes. LUNGS: Breath sounds equal, clear to auscultation bilaterally, no wheezes, no crackles, no accessory muscle use. HEART: Regular rate and rhythm, S1, S2 ABDOMEN: Soft, nontender, nondistended, normoactive bowel sounds, no guarding, no rebound, EXTREMITIES: well-perfused, no edema. SKIN: Warm, dry, Laboratory Results - last 24 hr 04/07/17 04/07/17 04/07/17 15:40 15:40 16:30 WBC RBC Hgb Hct MCV MCH MCHC RDW Plt Count MPV Sodium 129 L 129 L Potassium 4.2 D 4.2 Chloride 92 L 91 L Carbon Dioxide 27 28 Anion Gap 10 10 BUN 8 8 Creatinine 0.6 0.6 Creat Clearance w eGFR > 60 > 60 Random Glucose 99 91 Hemoglobin A1c % Serum Osmolality 266 L Calcium 8.3 L 8.6 Magnesium Total Bilirubin 0.7 1.0 D AST 29 31 ALT 20 21 Alkaline Phosphatase 63 66 Troponin I 0.03 Total Protein 6.2 L 6.5 Albumin 3.5 3.6 TSH 04/07/17 04/07/17 04/08/17 21:15 23:15 08:15 WBC 3.3 L D RBC 4.25 Hgb 12.8 Hct 36.7 MCV 86.3 MCH 30.2 MCHC 35.0 RDW 13.2 Plt Count 250 MPV 7.9 Sodium 128 L Potassium 3.5 Chloride 94 L Carbon Dioxide 28 Anion Gap 6 L BUN 7 Creatinine 0.7 Creat Clearance w eGFR Random Glucose 112 H D Hemoglobin A1c % Serum Osmolality Calcium 8.4 L Magnesium Total Bilirubin AST ALT Alkaline Phosphatase Troponin I 0.02 Total Protein Albumin TSH 04/08/17 04/08/17 08:15 08:15 WBC RBC Hgb Hct MCV MCH MCHC RDW Plt Count MPV Sodium 129 L Potassium 4.5 D Chloride 96 L Carbon Dioxide 28 Anion Gap 5 L BUN 4 L D Creatinine 0.7 Creat Clearance w eGFR > 60 Random Glucose 142 H D Hemoglobin A1c % 5.3 Serum Osmolality Calcium 8.8 Magnesium 2.2 Total Bilirubin 0.6 D AST 31 ALT 23 Alkaline Phosphatase 65 Troponin I Total Protein 6.6 Albumin 3.5 TSH 1.59 Active Medications Generic Name Dose Route Start Last Admin Trade Name Freq PRN Reason Stop Dose Admin Atenolol 25 mg 04/08/17 10:00 04/08/17 10:17 Tenormin - PO 25 mg DAILY DERICK Administration Hydrocortisone 1 applic 04/08/17 13:16 Hytone 1% Cream - TP BID PRN right anterior thigh rash Sodium Chloride 1,000 mls @ 60 mls/hr 04/07/17 22:00 04/07/17 22:08 1/2 Normal Saline IV 04/08/17 21:50 60 mls/hr ASDIR DERICK Administration Pantoprazole Sodium 40 mg 04/08/17 10:00 04/08/17 10:17 Protonix - PO 40 mg DAILY DERICK Administration Polyethylene Glycol 17 gm 04/09/17 10:00 Miralax (For Daily Use) - PO DAILY DERICK ASSESSMENT/PLAN: 1. hyponatremia 2. HTN 4. arthritis 5. constipation 6. vomiting Plan - sodium has improved, continue with 1/2 NS. - stop chlorthalidone as it can cause hyponatremia. - hyponatremia likely secondary to vomiting and chlorthalidone - repeat labs in morning. - monitor blood pressure, can give atenolol if elevated as that is what is listed on her home med list. - Hyokalemia improved. - Labs reviewed. Visit type - Emergency Visit Emergency Visit: Yes ED Registration Date: 04/07/17 Care time: The patient presented to the Emergency Department on the above date and was hospitalized for further evaluation of their emergent condition. - New Patient This patient is new to me today: No - Critical Care Critical Care patient: No
[2017-04-08] MEDS: SODIUM CHLORIDE 0.45% 1,000 ML IV SCH (14:33)
--- NOTE | 2017-04-08 15:07 | PN ---
Teaching Attending Note Name of Resident: Viktor Beaulieu (Nephrology) ATTENDING PHYSICIAN STATEMENT I saw and evaluated the patient. I reviewed the resident's note and discussed the case with the resident. I agree with the resident's findings and plan as documented. Pt seen and examined at bedside. She is tolerating diet. She denies dizziness. cardio s1s2 reg pulm clear GI soft ext neg edema neuro awake and alert Current Medications Generic Name Dose Route Start Last Admin Trade Name Freq PRN Reason Stop Dose Admin Atenolol 25 mg 04/08/17 14:53 Tenormin - PO DAILY DERICK Hydrocortisone 1 applic 04/08/17 13:16 Hytone 1% Cream - TP BID PRN right anterior thigh rash Sodium Chloride 1,000 mls @ 50 mls/hr 04/08/17 15:15 Normal Saline - IV 04/09/17 15:04 ASDIR DERICK Pantoprazole Sodium 40 mg 04/08/17 10:00 04/08/17 10:17 Protonix - PO 40 mg DAILY DERICK Administration Polyethylene Glycol 17 gm 04/09/17 10:00 Miralax (For Daily Use) - PO DAILY DERICK Last Vital Signs Temp Pulse Resp BP Pulse Ox 97.5 F L 49 L 18 117/51 96 04/08/17 14:48 04/08/17 14:48 04/08/17 14:48 04/08/17 14:48 04/07/17 21:00 Laboratory Tests 04/07/17 04/07/17 04/07/17 11:00 15:40 17:45 Sodium Serum Osmolality 266 L TSH Cortisol AM Sample Urine Osmolality 191 L Ur Random Sodium 39 04/07/17 04/08/17 04/08/17 21:15 08:15 08:15 Sodium 128 L 129 L Serum Osmolality TSH 1.59 Cortisol AM Sample Pending Urine Osmolality Ur Random Sodium Impression 1. hyponatremia 2. hypokalemia 3. HTN 4. arthritis 5. constipation 6. vomiting Plan - sodium is stabilizing - can change fluids to NS - would not restart chlorthalidone - urine osm is low (pt is correcting on her own) Dr Montilla Problem List - Problems (1) Hyponatremia Code(s): E87.1 - HYPO-OSMOLALITY AND HYPONATREMIA (2) Hypertension Code(s): I10 - ESSENTIAL (PRIMARY) HYPERTENSION (3) Hypokalemia Code(s): E87.6 - HYPOKALEMIA
[2017-04-08] MEDS: SODIUM CHLORIDE 1,000 ML IV SCH (18:55)
[2017-04-08] MEDS: HYDROCORTISONE 1% TOPICAL CREAM 30 GM TUBE TP PRN (21:59)
[2017-04-09] MEDS: PANTOPRAZOLE 40 MG TABLET (FP) PO SCH (09:54)
[2017-04-09] MEDS: ATENOLOL 25 MG TABLET (FP) PO SCH (10:02)
[2017-04-09] MEDS ORDERED: PT OWN MED DRAWER 7, Y5N ONE (10:53)
[2017-04-09] MEDS: HYDROCORTISONE 1% TOPICAL CREAM 30 GM TUBE TP PRN (11:12)
--- NOTE | 2017-04-09 11:38 | PN ---
Physical Exam: SUBJECTIVE: Patient seen and examined oob to chair. Feels well. Voices no complaints. OBJECTIVE: Vital Signs Period Temp Pulse Resp BP Sys/Alexis Pulse Ox Last 24 Hr 97.5 F-98.3 F 49-62 18-18 105-126/50-70 97-97 GENERAL: The patient is awake, alert, and fully oriented, in no acute distress. HEAD: Normal with no signs of trauma. EYES: PERRL, extraocular movements intact, sclera anicteric, conjunctiva clear. No ptosis. LUNGS: Breath sounds equal, clear to auscultation bilaterally, no wheezes, no crackles, no accessory muscle use. HEART: Regular rate and rhythm, S1, S2 without murmur, rub or gallop. ABDOMEN: Soft, nontender, nondistended, normoactive bowel sounds, no guarding, no rebound EXTREMITIES: 2+ pulses, warm, well-perfused, no edema. NEUROLOGICAL: Cranial nerves II through XII grossly intact. Normal speech, gait not observed. Laboratory Results - last 24 hr 04/07/17 04/08/17 04/08/17 17:45 08:15 08:15 Hemoglobin A1c % 5.3 Cortisol AM Sample 12.9 Urine Osmolality 191 L Active Medications Generic Name Dose Route Start Last Admin Trade Name Freq PRN Reason Stop Dose Admin Atenolol 25 mg 04/08/17 14:53 04/09/17 10:02 Tenormin - PO Not Given DAILY DERICK Hydrocortisone 1 applic 04/08/17 13:16 04/09/17 11:12 Hytone 1% Cream - TP 1 applic BID PRN Administration right anterior thigh rash Sodium Chloride 1,000 mls @ 50 mls/hr 04/08/17 15:15 04/08/17 18:55 Normal Saline - IV 04/09/17 15:04 50 mls/hr ASDIR DERICK Administration Pantoprazole Sodium 40 mg 04/08/17 10:00 04/09/17 09:54 Protonix - PO 40 mg DAILY DERICK Administration Polyethylene Glycol 17 gm 04/09/17 10:00 Miralax (For Daily Use) - PO DAILY DERICK ASSESSMENT/PLAN 76 year-old female with PMH significant for HTN. Admitted for hyponatremia, hypokalemia. Hyponatremia --likely multifactorial, several days of vomiting plus on chlorthalidone --chlorthalidone held, IV fluids --Na slowly correcting 129 (<--128<--124) Hypokalemia --K 2.9 on admission, repleted, now 4.5 Hypertension --continue atenolol Abdominal Pain --resolved, tolerating regular diet F/E/N Fluids: NS @ 50mL/hr Electrolytes: replete as indicated Nutrition: regular diet Dispo: continues to require inpatient care. Visit type - Emergency Visit Emergency Visit: Yes ED Registration Date: 04/07/17 Care time: The patient presented to the Emergency Department on the above date and was hospitalized for further evaluation of their emergent condition. - New Patient This patient is new to me today: Yes Date on this admission: 04/10/17 - Critical Care Critical Care patient: No
[2017-04-09] MEDS: POLYETHYLENE GLYCOL 3350 119 GM BTL PO SCH (14:29)
[2017-04-09] MEDS: SODIUM CHLORIDE 1,000 ML IV SCH (14:30)
[2017-04-09 18:35] LABS: ANION GAP 7 (8-16); CALCIUM 8.8 mg/dL (8.5-10.1); CO2 30 mmol/L (21-32); GLUCOSE,RANDOM 96 mg/dL (74-106)
[2017-04-09 18:36] LABS: CREATININE 0.7 mg/dL (0.55-1.02)
--- NOTE | 2017-04-09 19:03 | PN ---
Progress Note, Physician History of Present Illness: Pt seen and examined at bedside. She is awake and alert. She says she feels well. She denies headache or dizziness. She denies vomiting or diarrhea. - Current Medication List Current Medications: Active Medications Atenolol (Tenormin -) 25 mg PO DAILY [facility] Last Admin: 04/09/17 10:02 Dose: Not Given Hydrocortisone (Hytone 1% Cream -) 1 applic TP BID PRN PRN Reason: right anterior thigh rash Last Admin: 04/09/17 11:12 Dose: 1 applic Pantoprazole Sodium (Protonix -) 40 mg PO DAILY DERICK Last Admin: 04/09/17 09:54 Dose: 40 mg Polyethylene Glycol (Miralax (For Daily Use) -) 17 gm PO DAILY [facility] Last Admin: 04/09/17 14:29 Dose: Not Given - Objective Vital Signs: Vital Signs Temperature 98.2 F 04/09/17 14:15 Pulse Rate 64 04/09/17 14:15 Respiratory Rate 20 04/09/17 14:15 Blood Pressure 120/60 04/09/17 14:15 O2 Sat by Pulse Oximetry (%) 97 04/09/17 09:00 Constitutional: Yes: Calm Eyes: Yes: Conjunctiva Clear HENT: Yes: Atraumatic Cardiovascular: Yes: S1, S2 Respiratory: Yes: CTA Bilaterally Gastrointestinal: Yes: Normal Bowel Sounds, Soft Genitourinary: Yes: WNL Musculoskeletal: Yes: WNL Edema: No Neurological: Yes: Oriented Psychiatric: Yes: Oriented Labs: CBC, BMP 04/08/17 08:15 04/09/17 16:30 Problem List - Problems (1) Hyponatremia Code(s): E87.1 - HYPO-OSMOLALITY AND HYPONATREMIA (2) Hypertension Code(s): I10 - ESSENTIAL (PRIMARY) HYPERTENSION (3) Hypokalemia Code(s): E87.6 - HYPOKALEMIA Assessment/Plan Current Medications Generic Name Dose Route Start Last Admin Trade Name Freq PRN Reason Stop Dose Admin Atenolol 25 mg 04/08/17 14:53 04/09/17 10:02 Tenormin - PO Not Given DAILY DERICK Hydrocortisone 1 applic 04/08/17 13:16 04/09/17 11:12 Hytone 1% Cream - TP 1 applic BID PRN Administration right anterior thigh rash Pantoprazole Sodium 40 mg 04/08/17 10:00 04/09/17 09:54 Protonix - PO 40 mg DAILY DERICK Administration Polyethylene Glycol 17 gm 04/09/17 10:00 04/09/17 14:29 Miralax (For Daily Use) - PO Not Given DAILY DERICK Impression 1. hyponatremia 2. hypokalemia 3. HTN 4. arthritis 5. constipation 6. vomiting Plan - sodium is improving - repeat labs in am - cont current meds - wound not restart thiazide - blood pressure is stable Dr Montilla
[2017-04-10 08:18] LABS: ANION GAP 7 (8-16); CO2 28 mmol/L (21-32); CREATININE 0.6 mg/dL (0.55-1.02); GLUCOSE,RANDOM 97 mg/dL (74-106)
[2017-04-10] MEDS: PANTOPRAZOLE 40 MG TABLET (FP) PO SCH (09:15)
[2017-04-10] MEDS: ATENOLOL 25 MG TABLET (FP) PO SCH (09:15)
[2017-04-10] MEDS: POLYETHYLENE GLYCOL 3350 119 GM BTL PO SCH (09:16)
[2017-04-10 09:20] VITALS: BP 115/58; PULSE 71; TEMP 98.2
--- NOTE | 2017-04-10 10:16 | DS ---
Physical Exam: SUBJECTIVE: Patient seen and examined OBJECTIVE: Vital Signs Period Temp Pulse Resp BP Sys/Alexis Pulse Ox Last 24 Hr 98 F-98.3 F 61-71 20-20 115-131/55-74 97 PHYSICAL EXAM GENERAL: The patient is awake, alert, and fully oriented, in no acute distress. HEAD: Normal with no signs of trauma. EYES: PERRL, extraocular movements intact, sclera anicteric, conjunctiva clear. No ptosis. LUNGS: Breath sounds equal, clear to auscultation bilaterally, no wheezes, no crackles, no accessory muscle use. HEART: Regular rate and rhythm, S1, S2 without murmur, rub or gallop. ABDOMEN: Soft, nontender, nondistended, normoactive bowel sounds, no guarding, no rebound EXTREMITIES: 2+ pulses, warm, well-perfused, no edema. NEUROLOGICAL: Cranial nerves II through XII grossly intact. Normal speech, gait not observed. LABS Laboratory Results - last 24 hr 04/09/17 04/10/17 16:30 05:35 Sodium 132 L 133 L Potassium 4.4 3.9 Chloride 95 L 98 Carbon Dioxide 30 28 Anion Gap 7 L 7 L BUN 11 D 11 Creatinine 0.7 0.6 Random Glucose 96 D 97 Calcium 8.8 9.0 HOSPITAL COURSE: Date of Admission:04/07/17 Date of Discharge: 04/10/17 Pre hospital course Patient is 76 year-old female with past medical history of hypertension (on Atenolol/Chlorthalidone). She presented with abdominal pain, nausea, vomiting. The patient reported for last 2 days of having constant epigastric abdominal pain with several episodes of vomiting. She denied fevers, chill, chest pain. She deniedrecent travel. Patient was recently treated with Cipro for pyelonephritis and finished her dose of 10 days of ciprofloxacin approximately one week ago. ER course was notable for: (1) NA 124, given 1 liter of IVF (2) Potassium 2.9, repleted with Kdur 60mg x 1 (3) Glucose 114 (4) Trop negative x 1 (5) EKG sinus bradycardia, non specific t wave abnormality Subsequent hospital course by assessment & plan Hyponatremia --likely multifactorial, referrable to several days of vomiting plus on chlorthalidone at home --chlorthalidone was held --Na slowly corrected with IV fluids, was 124 on admission, today 133 --patient and daughter advised to stop taking chlorthalidone Hypokalemia --K 2.9 on admission, repleted, 3.9 at time of discharge Hypertension --continued atenolol Abdominal Pain --resolved, tolerating regular diet Minutes to complete discharge: 35 Discharge Summary Reason For Visit: HYPONATREMIA, HYPOKALEMIA Current Active Problems Hypertension (Acute) Hypokalemia (Acute) Hyponatremia (Acute) Condition: Improved - Instructions Diet, Activity, Other Instructions: Mrs. Tafoya: Nueva medicina de Atenolol 25mg cada daquan por la manana. Esta medicina esta en [facility]. Por favor discontinuar la Atenolol/Chlorthalidone 50-25. Por favor de hacer marie bailey con [facility] en marie semana para mas analysis de [place]. Por favor de llamar si tienes preguntas [place] [phone] Mrs. Tafoya New medication of Atenolol 25mg has been called into you pharmacy. Please stop taking the Atenolol/Chlorthalidone 50-25 combination pill. Please see your primary care doctor within one week after discharge so that he can evaluate you further. You will need repeat lab work as well as have your blood pressure checked. Please call us if you have any questions. [place] [phone] Referrals: Alexander Velazquez MD [Primary Care Provider] - Disposition: HOME - Home Medications Comprehensive Discharge Medication List: Ambulatory Orders Atenolol [Tenormin -] 25 mg PO DAILY #30 tablet 04/08/17 Polyethylene Glycol 3350 [Miralax 119 gm Btl -] 17 gm PO DAILY #1 bottle This patient is new to me today: No Emergency Visit: Yes ED Registration Date: 04/07/17 Care time: The patient presented to the Emergency Department on the above date and was hospitalized for further evaluation of their emergent condition. Critical Care patient: No - Discharge Referral Referred to [facility] Med P.C.: No
== END 2017-04-10 10:46 | disposition home or self-care (01) | DRG 641 ==
LOC: JER 09:39 → JERBED 13:13 → J7W 15:54
PROVIDERS: ADMIT Internal Medicine; ATTEND Nurse Practitioner Acute Care
DX: E87.1 Hypo-osmolality and hyponatremia (principal); N12 Tubulo-interstitial nephritis, not specified as acute or chronic; T50.2X5A Adverse effect of carbonic-anhydrase inhibitors, benzothiadiazides and other diuretics, initial encounter; K21.9 Gastro-esophageal reflux disease without esophagitis; E87.6 Hypokalemia; R00.1 Bradycardia, unspecified; I10 Essential (primary) hypertension; R10.9 Unspecified abdominal pain; M19.90 Unspecified osteoarthritis, unspecified site; K59.00 Constipation, unspecified; R11.2 Nausea with vomiting, unspecified
CPT/HCPCS: 36415; 74020-TC; 80048; 80053; 81003; 81015; 82436; 82533; 83036; 83690; 83735; 83930; 83935; 84133; 84300; 84443; 84484; 85025; 85027; 87086; 87186; 93005; 93010; 99283-25

== ENCOUNTER 2021-08-29 13:32 | Inpatient (IN) | payer OTHER ==
[2021-08-29] MEDS ORDERED: AMPICILLIN NA/SULBACTAM NA 3 GM in SODIUM CHLORIDE 100 ML IVPB ONE (15:20)
[2021-08-29] MEDS ORDERED: AMPICILLIN NA/SULBACTAM NA 1.5 GM in SODIUM CHLORIDE 100 ML IVPB ONE (15:23)
[2021-08-29] MEDS ORDERED: DEXTROSE 5%-WATER - 1,000 ML IV SCH (16:30)
[2021-08-29 16:53] LABS: BASO % 1.2 % (0-2.0); HEMATOCRIT 39.5 % (32.4-45.2); HEMOGLOBIN 13.2 GM/dL (10.7-15.3); LYMPH % 24.2 % (8-40); MCHC 33.5 g/dl (32.0-36.0); MEAN CELL VOLUME 89.5 fl (80-96); MEAN PLT VOLUME 8.9 fl (7.5-11.1); MONO % 13.8 % (3.8-10.2); NEUT % 59.8 % (42.8-82.8); PLATELET COUNT 227 10^3/uL (134-434); RBC 4.41 M/mm3 (3.60-5.2); RDW 13.8 % (11.6-15.6); WHITE BLOOD COUNT 4.3 K/mm3 (4.0-10.0)
[2021-08-29 17:12] LABS: CALCIUM 9.4 mg/dL (8.5-10.1)
[2021-08-29 17:13] LABS: ALBUMIN 3.6 g/dl (3.4-5.0)
[2021-08-29 17:16] LABS: CREATININE 0.8 mg/dL (0.55-1.3)
[2021-08-29 17:18] LABS: BILIRUBIN,TOTAL 0.6 mg/dL (0.2-1); TOT PROT 7.4 g/dl (6.4-8.2)
[2021-08-29] MEDS: SODIUM CHLORIDE IVPB SCH (18:43)
[2021-08-29] MEDS: ACYCLOVIR SODIUM IVPB SCH (18:43)
[2021-08-30] MEDS: SODIUM CHLORIDE IVPB SCH ×3 (00:34→16:02)
[2021-08-30] MEDS: ACYCLOVIR SODIUM IVPB SCH ×3 (00:34→16:02)
[2021-08-30] MEDS: LACTATED RINGERS SOLUTION 1,000 ML IV SCH ×2 (00:34→14:15)
[2021-08-30] MEDS: ACETAMINOPHEN 325 MG TABLET (FP) PO PRN (03:02)
[2021-08-30 03:40] VITALS: BMI 29.2
[2021-08-30] MEDS: AMPICILLIN NA/SULBACTAM NA 1.5 GM in SODIUM CHLORIDE 100 ML IVPB SCH ×2 (04:07→11:07)
[2021-08-30] MEDS: GABAPENTIN 100 MG CAPSULE PO SCH ×3 (06:01→22:35)
[2021-08-30 09:57] LABS: EOS % 0.9 % (0-4.5); HEMATOCRIT 40.1 % (32.4-45.2); HEMOGLOBIN 13.7 GM/dL (10.7-15.3); LYMPH % 16.3 % (8-40); MCH 30.2 pg (25.7-33.7); MCHC 34.1 g/dl (32.0-36.0); MEAN CELL VOLUME 88.5 fl (80-96); MEAN PLT VOLUME 8.6 fl (7.5-11.1); NEUT % 70.8 % (42.8-82.8); PLATELET COUNT 216 10^3/uL (134-434); RBC 4.53 M/mm3 (3.60-5.2); RDW 13.6 % (11.6-15.6); WHITE BLOOD COUNT 4.3 K/mm3 (4.0-10.0)
[2021-08-30] MEDS ORDERED: ATENOLOL 25 MG TABLET (FP) PO SCH (10:00)
[2021-08-30] MEDS ORDERED: PATIENT'S OWN MEDICATION (NON-FORMULARY) (Mirabegron [Myrbetriq] 25 MG Tab.Er.24h) PO SCH (10:00)
[2021-08-30 10:16] LABS: CALCIUM 9.1 mg/dL (8.5-10.1)
[2021-08-30 10:17] LABS: ALBUMIN 3.5 g/dl (3.4-5.0); BLOOD UREA NITROGEN 14.1 mg/dL (7-18); MAGNESIUM 2.2 mg/dL (1.8-2.4)
[2021-08-30 10:20] LABS: CREATININE 0.9 mg/dL (0.55-1.3)
[2021-08-30 10:21] LABS: BILIRUBIN,TOTAL 0.8 mg/dL (0.2-1); TOT PROT 7.2 g/dl (6.4-8.2)
[2021-08-30] MEDS ORDERED: SODIUM CHLORIDE 100 ML IVPB ONE ×3 (10:46→22:05)
[2021-08-30] MEDS ORDERED: AMPICILLIN NA/SULBACTAM NA 1.5 GM VIAL ONE (10:46)
[2021-08-30] MEDS: PANTOPRAZOLE 20 MG TABLET PO SCH (11:08)
[2021-08-30] MEDS: ENOXAPARIN NA (PORCINE) 40 MG/0.4 ML DISP.SYRIN SQ SCH (11:08)
[2021-08-30] MEDS ORDERED: AMPICILLIN NA/SULBACTAM NA 3 GM VIAL ONE ×2 (15:02→22:04)
[2021-08-30] MEDS: AMPICILLIN NA/SULBACTAM NA 3 GM in SODIUM CHLORIDE 100 ML IVPB SCH ×2 (15:13→22:35)
[2021-08-30] MEDS: LOSARTAN POTASSIUM 25 MG TABLET PO SCH (15:13)
[2021-08-30] MEDS ORDERED: AMPICILLIN NA/SULBACTAM NA 3 GM in SODIUM CHLORIDE 100 ML IVPB SCH (18:00)
[2021-08-30] MEDS ORDERED: PT OWN MED DRAWER 7, Y5N ONE (22:05)
[2021-08-30] MEDS: AMITRIPTYLINE HCL 25 MG TABLET PO SCH (22:35)
[2021-08-31] MEDS ORDERED: AMPICILLIN NA/SULBACTAM NA 3 GM VIAL ONE ×4 (01:11→20:47)
[2021-08-31] MEDS ORDERED: SODIUM CHLORIDE 100 ML IVPB ONE ×4 (01:12→20:48)
[2021-08-31] MEDS ORDERED: PT OWN MED DRAWER 7, Y5N ONE ×2 (01:12→09:15)
[2021-08-31] MEDS: SODIUM CHLORIDE IVPB SCH ×3 (01:28→18:31)
[2021-08-31] MEDS: ACYCLOVIR SODIUM IVPB SCH ×3 (01:28→18:31)
[2021-08-31] MEDS: AMPICILLIN NA/SULBACTAM NA 3 GM in SODIUM CHLORIDE 100 ML IVPB SCH ×4 (02:19→21:28)
[2021-08-31] MEDS: GABAPENTIN 100 MG CAPSULE PO SCH ×3 (06:02→21:28)
[2021-08-31] MEDS: POLYETHYLENE GLYCOL (HEALTHYLAX) 3350 17 GM PACKET PO SCH ×3 (09:31→21:28)
[2021-08-31] MEDS: LOSARTAN POTASSIUM 25 MG TABLET PO SCH (09:32)
[2021-08-31] MEDS: PANTOPRAZOLE 20 MG TABLET PO SCH (09:32)
[2021-08-31] MEDS: ENOXAPARIN NA (PORCINE) 40 MG/0.4 ML DISP.SYRIN SQ SCH (09:32)
[2021-08-31] MEDS: ACETAMINOPHEN 325 MG TABLET (FP) PO PRN ×2 (09:34→21:28)
[2021-08-31] MEDS: LACTATED RINGERS SOLUTION 1,000 ML IV SCH ×3 (09:42→18:31)
[2021-08-31] MEDS: AMITRIPTYLINE HCL 25 MG TABLET PO SCH (21:28)
[2021-09-01] MEDS: ACYCLOVIR SODIUM IVPB SCH ×3 (01:24→18:17)
[2021-09-01] MEDS: SODIUM CHLORIDE IVPB SCH ×3 (01:24→18:17)
[2021-09-01] MEDS ORDERED: SODIUM CHLORIDE 100 ML IVPB ONE ×4 (03:47→20:45)
[2021-09-01] MEDS ORDERED: AMPICILLIN NA/SULBACTAM NA 3 GM VIAL ONE ×4 (03:47→20:45)
[2021-09-01] MEDS: AMPICILLIN NA/SULBACTAM NA 3 GM in SODIUM CHLORIDE 100 ML IVPB SCH ×4 (03:56→20:57)
[2021-09-01] MEDS: GABAPENTIN 100 MG CAPSULE PO SCH ×3 (05:36→21:05)
[2021-09-01] MEDS ORDERED: PT OWN MED DRAWER 7, Y5N ONE ×4 (10:24→22:47)
[2021-09-01] MEDS: PANTOPRAZOLE 20 MG TABLET PO SCH (10:28)
[2021-09-01] MEDS: ENOXAPARIN NA (PORCINE) 40 MG/0.4 ML DISP.SYRIN SQ SCH (10:28)
[2021-09-01] MEDS: LOSARTAN POTASSIUM 25 MG TABLET PO SCH (10:28)
[2021-09-01] MEDS: POLYETHYLENE GLYCOL (HEALTHYLAX) 3350 17 GM PACKET PO SCH ×2 (10:29→21:05)
[2021-09-01] MEDS: ACETAMINOPHEN 325 MG TABLET (FP) PO PRN (12:11)
[2021-09-01 12:13] LABS: HEMATOCRIT 36.9 % (32.4-45.2); HEMOGLOBIN 12.4 GM/dL (10.7-15.3); MCH 29.9 pg (25.7-33.7); MCHC 33.6 g/dl (32.0-36.0); MEAN PLT VOLUME 8.6 fl (7.5-11.1); PLATELET COUNT 200 10^3/uL (134-434); RBC 4.15 M/mm3 (3.60-5.2); RDW 13.5 % (11.6-15.6); WHITE BLOOD COUNT 3.9 K/mm3 (4.0-10.0)
[2021-09-01 12:36] LABS: CALCIUM 8.8 mg/dL (8.5-10.1)
[2021-09-01 12:37] LABS: BLOOD UREA NITROGEN 9.7 mg/dL (7-18)
[2021-09-01 12:40] LABS: CREATININE 0.7 mg/dL (0.55-1.3)
[2021-09-01] MEDS: LACTATED RINGERS SOLUTION 1,000 ML IV SCH ×2 (13:56→16:30)
[2021-09-01] MEDS: AMITRIPTYLINE HCL 25 MG TABLET PO SCH (21:05)
[2021-09-02] MEDS: SODIUM CHLORIDE IVPB SCH ×3 (01:09→16:28)
[2021-09-02] MEDS: ACYCLOVIR SODIUM IVPB SCH ×3 (01:09→16:28)
[2021-09-02] MEDS ORDERED: AMPICILLIN NA/SULBACTAM NA 3 GM VIAL ONE ×4 (01:53→21:06)
[2021-09-02] MEDS ORDERED: SODIUM CHLORIDE 100 ML IVPB ONE ×4 (01:53→21:07)
[2021-09-02] MEDS: AMPICILLIN NA/SULBACTAM NA 3 GM in SODIUM CHLORIDE 100 ML IVPB SCH ×4 (02:34→21:15)
[2021-09-02] MEDS: GABAPENTIN 100 MG CAPSULE PO SCH ×3 (05:36→21:15)
[2021-09-02] MEDS: LOSARTAN POTASSIUM 25 MG TABLET PO SCH (09:09)
[2021-09-02] MEDS: POLYETHYLENE GLYCOL (HEALTHYLAX) 3350 17 GM PACKET PO SCH ×2 (09:09→21:15)
[2021-09-02] MEDS: ENOXAPARIN NA (PORCINE) 40 MG/0.4 ML DISP.SYRIN SQ SCH (09:09)
[2021-09-02] MEDS: PANTOPRAZOLE 20 MG TABLET PO SCH (09:09)
[2021-09-02 09:26] LABS: HEMATOCRIT 36.3 % (32.4-45.2); HEMOGLOBIN 12.2 GM/dL (10.7-15.3); MCHC 33.7 g/dl (32.0-36.0); MEAN CELL VOLUME 88.9 fl (80-96); MEAN PLT VOLUME 8.7 fl (7.5-11.1); PLATELET COUNT 222 10^3/uL (134-434); RBC 4.09 M/mm3 (3.60-5.2); RDW 13.5 % (11.6-15.6); WHITE BLOOD COUNT 3.6 K/mm3 (4.0-10.0)
[2021-09-02 09:45] LABS: CALCIUM 8.8 mg/dL (8.5-10.1)
[2021-09-02 09:49] LABS: CREATININE 0.6 mg/dL (0.55-1.3)
[2021-09-02] MEDS: LACTATED RINGERS SOLUTION 1,000 ML IV SCH (17:36)
[2021-09-02] MEDS ORDERED: PT OWN MED DRAWER 7, Y5N ONE (21:08)
[2021-09-02] MEDS: AMITRIPTYLINE HCL 25 MG TABLET PO SCH (21:15)
[2021-09-03] MEDS: SODIUM CHLORIDE IVPB SCH ×3 (02:00→17:14)
[2021-09-03] MEDS: ACYCLOVIR SODIUM IVPB SCH ×3 (02:00→17:14)
[2021-09-03] MEDS ORDERED: SODIUM CHLORIDE 100 ML IVPB ONE ×4 (03:47→19:56)
[2021-09-03] MEDS ORDERED: AMPICILLIN NA/SULBACTAM NA 3 GM VIAL ONE ×4 (03:47→19:56)
[2021-09-03] MEDS: AMPICILLIN NA/SULBACTAM NA 3 GM in SODIUM CHLORIDE 100 ML IVPB SCH ×4 (04:02→20:06)
[2021-09-03] MEDS: GABAPENTIN 100 MG CAPSULE PO SCH ×3 (06:30→21:54)
[2021-09-03 10:52] LABS: HEMATOCRIT 35.2 % (32.4-45.2); HEMOGLOBIN 11.9 GM/dL (10.7-15.3); MCH 30.2 pg (25.7-33.7); MCHC 33.7 g/dl (32.0-36.0); MEAN CELL VOLUME 89.4 fl (80-96); MEAN PLT VOLUME 8.3 fl (7.5-11.1); PLATELET COUNT 211 10^3/uL (134-434); RBC 3.94 M/mm3 (3.60-5.2); RDW 13.6 % (11.6-15.6); WHITE BLOOD COUNT 4.5 K/mm3 (4.0-10.0)
[2021-09-03] MEDS: LOSARTAN POTASSIUM 25 MG TABLET PO SCH (11:09)
[2021-09-03] MEDS: ENOXAPARIN NA (PORCINE) 40 MG/0.4 ML DISP.SYRIN SQ SCH (11:09)
[2021-09-03] MEDS: PANTOPRAZOLE 20 MG TABLET PO SCH (11:09)
[2021-09-03] MEDS: POLYETHYLENE GLYCOL (HEALTHYLAX) 3350 17 GM PACKET PO SCH ×2 (11:09→21:54)
[2021-09-03 11:16] LABS: CALCIUM 8.5 mg/dL (8.5-10.1)
[2021-09-03 11:20] LABS: CREATININE 0.8 mg/dL (0.55-1.3)
[2021-09-03] MEDS ORDERED: PT OWN MED DRAWER 7, Y5N ONE (21:42)
[2021-09-03] MEDS: AMITRIPTYLINE HCL 25 MG TABLET PO SCH (21:54)
[2021-09-04] MEDS: ACYCLOVIR SODIUM IVPB SCH ×3 (00:54→17:44)
[2021-09-04] MEDS: SODIUM CHLORIDE IVPB SCH ×3 (00:54→17:44)
[2021-09-04] MEDS: LACTATED RINGERS SOLUTION 1,000 ML IV SCH ×2 (00:55→17:44)
[2021-09-04] MEDS ORDERED: SODIUM CHLORIDE 100 ML IVPB ONE ×2 (02:18→08:41)
[2021-09-04] MEDS ORDERED: AMPICILLIN NA/SULBACTAM NA 3 GM VIAL ONE ×2 (02:18→08:41)
[2021-09-04] MEDS: AMPICILLIN NA/SULBACTAM NA 3 GM in SODIUM CHLORIDE 100 ML IVPB SCH ×3 (03:01→14:58)
[2021-09-04] MEDS: GABAPENTIN 100 MG CAPSULE PO SCH ×3 (05:29→21:27)
[2021-09-04] MEDS ORDERED: PT OWN MED DRAWER 7, Y5N ONE ×3 (08:42→23:42)
[2021-09-04] MEDS: LOSARTAN POTASSIUM 25 MG TABLET PO SCH ×2 (08:44→10:32)
[2021-09-04] MEDS: POLYETHYLENE GLYCOL (HEALTHYLAX) 3350 17 GM PACKET PO SCH ×2 (10:34→21:26)
[2021-09-04] MEDS: PANTOPRAZOLE 20 MG TABLET PO SCH (10:34)
[2021-09-04] MEDS: ENOXAPARIN NA (PORCINE) 40 MG/0.4 ML DISP.SYRIN SQ SCH (10:34)
[2021-09-04] MEDS: AMOX TR/POT CLAV 875MG/125MG TABLETS (FP) PO SCH (17:44)
[2021-09-04] MEDS: ACETAMINOPHEN 325 MG TABLET (FP) PO PRN (17:49)
[2021-09-04] MEDS: ATENOLOL 25 MG TABLET (FP) PO SCH (20:12)
[2021-09-04] MEDS: AMITRIPTYLINE HCL 25 MG TABLET PO SCH (21:26)
[2021-09-05] MEDS: SODIUM CHLORIDE IVPB SCH ×2 (00:57→09:28)
[2021-09-05] MEDS: ACYCLOVIR SODIUM IVPB SCH ×2 (00:57→09:28)
[2021-09-05] MEDS: LACTATED RINGERS SOLUTION 1,000 ML IV SCH (00:58)
[2021-09-05] MEDS: GABAPENTIN 100 MG CAPSULE PO SCH ×2 (05:16→14:24)
[2021-09-05] MEDS ORDERED: PT OWN MED DRAWER 7, Y5N ONE ×2 (06:25→08:56)
[2021-09-05] MEDS: AMOX TR/POT CLAV 875MG/125MG TABLETS (FP) PO SCH (08:59)
[2021-09-05] MEDS: PANTOPRAZOLE 20 MG TABLET PO SCH (09:28)
[2021-09-05] MEDS: POLYETHYLENE GLYCOL (HEALTHYLAX) 3350 17 GM PACKET PO SCH (09:28)
[2021-09-05] MEDS: LOSARTAN POTASSIUM 25 MG TABLET PO SCH (09:28)
[2021-09-05] MEDS: ENOXAPARIN NA (PORCINE) 40 MG/0.4 ML DISP.SYRIN SQ SCH (09:28)
[2021-09-05] MEDS: ATENOLOL 25 MG TABLET (FP) PO SCH (09:28)
[2021-09-05 10:52] VITALS: BP 155/59; PULSE 77; TEMP 98.7
== END 2021-09-05 15:32 | disposition home health service (06) | DRG 866 ==
LOC: JER 13:32 → JERBED 19:04 → J5S 08-30 02:43
PROVIDERS: ADMIT Internal Medicine; ATTEND Internal Medicine
DX: B02.7 Disseminated zoster (principal); L03.221 Cellulitis of neck; I10 Essential (primary) hypertension; R51.9 Headache, unspecified; K21.9 Gastro-esophageal reflux disease without esophagitis
CPT/HCPCS: 36415; 71045-TC-FY; 80048; 80053; 83735; 84100; 84443; 85025; 85027; 87040; 93005; 93010; 99285-25; C9803; U0003; U0005

== ENCOUNTER 2021-09-27 14:20 | Emergency (ER) | payer OTHER ==
[2021-09-27 14:27] VITALS: BMI 29.2
[2021-09-27] MEDS ORDERED: ACETAMINOPHEN 1000 MG/100 ML BAG IVPB ONE (14:46)
[2021-09-27] MEDS ORDERED: ONDANSETRON 4 MG/2 ML VIAL IVPUSH ONE (14:46)
[2021-09-27] MEDS ORDERED: SODIUM CHLORIDE 1,000 ML IV STA (14:46)
[2021-09-27] MEDS ORDERED: ACETAMINOPHEN INJECTION 100 ML IVPB ONE (14:48)
[2021-09-27] MEDS ORDERED: ONDANSETRON 4 MG/2 ML VIAL ONE (15:04)
[2021-09-27 15:20] LABS: BASO % 0.9 % (0-2.0); HEMATOCRIT 33.2 % (32.4-45.2); HEMOGLOBIN 11.3 GM/dL (10.7-15.3); MCHC 34.1 g/dl (32.0-36.0); MEAN CELL VOLUME 87.9 fl (80-96); MEAN PLT VOLUME 7.7 fl (7.5-11.1); MONO % 7.6 % (3.8-10.2); NEUT % 88.5 % (42.8-82.8); PLATELET COUNT 234 10^3/uL (134-434); RBC 3.78 M/mm3 (3.60-5.2); RDW 14.1 % (11.6-15.6); WHITE BLOOD COUNT 13.5 K/mm3 (4.0-10.0)
[2021-09-27 15:52] VITALS: BP 136/78; PULSE 89; TEMP 99.8
[2021-09-27 15:55] LABS: ALBUMIN 2.9 g/dl (3.4-5.0); BLOOD UREA NITROGEN 9.8 mg/dL (7-18); CALCIUM 8.3 mg/dL (8.5-10.1)
[2021-09-27 15:59] LABS: CREATININE 0.9 mg/dL (0.55-1.3)
[2021-09-27 16:00] LABS: BILIRUBIN,TOTAL 0.6 mg/dL (0.2-1); TOT PROT 6.6 g/dl (6.4-8.2)
[2021-09-27 17:20] LABS: EPI CELLS 22 /uL (0-25.1); HYALINE CASTS 2 /uL (0-3.1); URINE APPEARANCE TURBID; URINE BACTERIA >9,000 /uL (0-1359); URINE BILIRUBIN NEGATIVE (NEGATIVE); URINE COLOR DK YELLOW; URINE GLUCOSE (UA) NEGATIVE (NEGATIVE); URINE KETONE NEGATIVE (NEGATIVE); URINE LEUK ESTERASE 3+ (NEGATIVE); URINE NITRITE POSITIVE (NEGATIVE); URINE PROTEIN 2+ (NEGATIVE); URINE RBC 132 /uL (0-23.9); URINE WBC 3231 /uL (0-25.8)
[2021-09-27] MEDS ORDERED: CEFTRIAXONE 1 GM in DEXTROSE 5%-WATER - 100 ML IVPB ONE (17:30)
[2021-09-27] MEDS ORDERED: CEFTRIAXONE 1 GM/50 ML BAG ONE (17:32)
== END 2021-09-27 19:25 | disposition home or self-care (01) ==
LOC: JER 14:20
DX: N30.01 Acute cystitis with hematuria (principal)
CPT/HCPCS: 36415; 71046-TC-FY; 80053; 81003; 83690; 85025; 87086; 87186; 99284-25; C9803; J0131; U0003; U0005

== ENCOUNTER 2024-09-14 00:44 | Emergency (ER) | payer OTHER ==
[2024-09-14 00:52] VITALS: BP 138/64; PULSE 88; RESP 17; BMI 32.5
[2024-09-14] MEDS ORDERED: ACETAMINOPHEN 500 MG TABLET (FP) ONE (02:31)
[2024-09-14] MEDS ORDERED: ONDANSETRON *ODT* 4 MG TABLET ONE (02:32)
[2024-09-14] MEDS: ONDANSETRON *ODT* 4 MG TABLET SL ONE (02:33)
[2024-09-14] MEDS: ACETAMINOPHEN 500 MG TABLET (FP) PO ONE (02:33)
[2024-09-14 03:00] VITALS: TEMP 100
== END 2024-09-14 03:37 | disposition home or self-care (01) ==
LOC: JER 00:44
DX: J10.1 Influenza due to other identified influenza virus with other respiratory manifestations (principal); R05.9 Cough, unspecified; R11.2 Nausea with vomiting, unspecified; R68.83 Chills (without fever); Z20.822 Contact with and (suspected) exposure to COVID-19
CPT/HCPCS: 0241U-QW; 71046-TC-FY; 93005; 93010; 99284-25; Q0162

== ENCOUNTER 2024-11-02 18:50 | Emergency (ER) | payer OTHER ==
[2024-11-02 19:06] VITALS: BP 132/75; PULSE 74; RESP 20; TEMP 97.4; BMI 35.0
== END 2024-11-02 20:20 | disposition home or self-care (01) ==
LOC: JER 18:50
DX: T82.838A Hemorrhage due to vascular prosthetic devices, implants and grafts, initial encounter (principal)
CPT/HCPCS: 99283-25